=== PATIENT | male | born 1940 | race American Indian/Alaskan Native ===

== ENCOUNTER 2017-05-26 06:44 | Day surgery (SDC) | payer MEDICARE ==
[2017-05-26] MEDS ORDERED: ECOTRIN PO ONE (07:02)
[2017-05-26 07:26] LABS: Basophils % (Auto) 0.4 % (0.0-1.8); Eosinophils % (Auto) 2.2 % (0.0-4.3); Hematocrit 42.3 % (35.5-45.6); Hemoglobin 14.3 gm/dl (11.8-15.2); Mean Corpuscular HGB Conc 34 % (32-34); Mean Corpuscular Hemoglobin 29 pg (28-32); Mean Corpuscular Volume 86 fl (84-94); Platelet Count 161 K/mm3 (140-440); Red Cell Distribution Width 15.2 % (13.2-15.2); White Blood Count 4.1 K/mm3 (4.5-11.0)
[2017-05-26 07:29] VITALS: BP 124/69
[2017-05-26 07:37] LABS: Anion Gap 16 mmol/L; Blood Urea Nitrogen 17 mg/dL (9-20); Carbon Dioxide 27 mmol/L (22-30); Chloride 96.5 mmol/L (98-107); Glucose 97 mg/dL (75-100); Potassium 4.2 mmol/L (3.6-5.0); Sodium 135 mmol/L (137-145)
[2017-05-26 07:40] LABS: INR 1.67 (0.87-1.13)
[2017-05-26] MEDS ORDERED: NACL 0.9% 500 ML 500 ML IV SCH (08:00)
== END 2017-05-26 09:00 | disposition home or self-care (01) ==
LOC: EDBD 06:44 → CATHLABREC 06:44
PROVIDERS: ATTEND Internal Medicine
DX: R07.9 Chest pain, unspecified (principal); Z53.8 Procedure and treatment not carried out for other reasons
CPT/HCPCS: 36415; 80048; 85025; 85610; 85730; 93005; 93010; J7040

== ENCOUNTER 2017-05-29 07:05 | Day surgery (SDC) | payer MEDICARE ==
[2017-05-29] MEDS ORDERED: NACL 0.9% 500 ML 500 ML IV SCH (08:00)
[2017-05-29] MEDS ORDERED: ECOTRIN PO ONE (08:00)
[2017-05-29 08:02] LABS: INR 1.06 (0.87-1.13)
[2017-05-29] MEDS ORDERED: HEPARIN/NS 5000 UNIT/500ML(CATH LAB) 1,000 ML IR ONE (08:20)
[2017-05-29] MEDS ORDERED: HEPARIN 10,000 UNITS/10 ML ONE (08:20)
[2017-05-29] MEDS: VERSED ONE ×2 (08:42→08:50)
[2017-05-29] MEDS: SUBLIMAZE ONE ×2 (08:42→08:50)
[2017-05-29] MEDS: XYLOCAINE 2% INFILTRATI ONE ×2 (08:43→08:54)
--- NOTE | 2017-05-29 12:38 | Cardiac Catherization Report ---
CARDIAC CATHETERIZATION INDICATION FOR PROCEDURE: A 77-year-old gentleman with history of bypass surgery done on 05/17/2002, with left internal mammary to the LAD and SVG to the PDA. Presently, having chest pains at rest with negative PET scan. Because of persistent chest pain and shortness of breath, he is scheduled for cardiac catheterization for definitive diagnosis and treatment. The patient is aware of the procedure, potential complications, and alternatives of therapy available. DESCRIPTION OF PROCEDURE: The patient was brought to the catheterization laboratory in a fasting condition. Right groin area was thoroughly cleansed with Betadine solution and sterile drapes were applied. Local anesthesia was achieved using 2% Xylocaine. Right femoral artery puncture was made using 5F Micropuncture arterial puncture needle. Subsequently, 5-[place]banian sheath was introduced. A 5-[place]ian multipurpose catheter was used to obtain the angiograms of the right coronary artery, left coronary artery, vein graft to the RCA and left ventriculogram done in HERNANDEZ projections. Subsequently, mammary catheter was used to obtain the angiograms of the left internal mammary graft. At the end of the procedure, catheter and sheath were removed. Good hemostasis was achieved with manual pressure. No untoward complications were noted. Following findings were noted. HEMODYNAMICS: 1. Opening aortic pressure 153/65. No gradient across the aortic valve. Right coronary artery dominant vessel shows moderate 60% to 70% lesion in the mid part with occlusion in the distal part prior to the PDA. LV branch and PDA are not visualized on right coronary injection. However, PDA and LV branch are well visualized through the collaterals and LCA injection. 2. Left coronary artery arises normally from left coronary cusp. Left main without significant disease. The LAD is occluded after giving rise to major septal branches. Distal LAD is not visualized on pechanga LCA injection. Ramus branch shows mild disease. Large obtuse marginal branch shows 50% smooth proximal lesion, otherwise mild diffuse irregularities noted. 3. LCA injection as mentioned above excellent collaterals are noted to the distal RCA and PDA. 4. Saphenous vein graft to the PDA is occluded at the origin. 5. Left internal mammary to the LAD is widely patent. Mid and distal LAD without significant disease. 6. Left ventriculogram done in HERNANDEZ projection shows mild diffuse hypokinesis. However, only limited amount of dye is injected. Approximately ejection fraction was felt to be 40% to 45%. Mitral regurgitation could not be evaluated. FINAL IMPRESSION: 1. Mild LV dysfunction; however, would confirm this with echocardiographic findings. 2. Occluded RCA in the distal part with occluded vein graft to the RCA with excellent collaterals on LCA injection to the distal RCA. Left system shows this occluded LAD, which is well protected by widely patent left internal mammary. Distal LAD without significant disease. Ramus branch and circumflex artery showed only mild to moderate disease. Considering the above would continue medical therapy. If needed, consider intervention of the chronic total occlusion of the RCA. At this point, medical therapy appears to be appropriate. Good hemostasis was achieved with pressure bandage. No untoward complications were noted. Findings were explained to the patient. JOB# [id number] YOLANDA/IRA DE LA VEGA
[2017-05-29 13:36] VITALS: BP 142/86
--- NOTE | 2017-05-30 12:54 | Short Stay Summary ---
Short Stay Documentation Date of service: 05/30/17 - History H&P: obtained from office - Allergies and Medications Current Medications: Allergies No Known Allergies Allergy (Verified 05/26/17 07:11) Home Medications Medication Instructions Recorded Confirmed Last Taken Type Aspirin [Aspirin BABY CHEW TAB] 81 mg PO DAILY 05/26/17 05/29/17 05/28/17 History AtorvaSTATin [Lipitor] 40 mg PO DAILY 05/26/17 05/29/17 05/28/17 History Furosemide [Lasix TAB] 40 mg PO DAILY 05/26/17 05/29/17 05/28/17 History Tizanidine HCl [Zanaflex] 4 mg PO TID PRN 05/26/17 05/29/17 05/28/17 History Valsartan/Hydrochlorothiazide 1 tab PO DAILY 05/26/17 05/29/17 05/28/17 History [Valsartan-Hctz 160-12.5 mg Tab] Warfarin [Coumadin] 7.5 mg PO DAILY 05/26/17 05/29/17 05/23/17 History 7.5mg - Brief post op/procedure progress note Date of procedure: 05/29/17 Pre-op diagnosis: CAD; chest pain Post-op diagnosis: same Procedure: C - see report Anesthesia: local Estimated blood loss: none Condition: stable - Disposition Condition at discharge: Good Disposition: [id number] TO HOME OR SELFCARE - Discharge Diagnoses (1) CAD (coronary artery disease) Status: Chronic Qualifiers: Coronary Disease-Associated Artery/Lesion type: C [place] vs. transplanted heart: N Associated angina: A (2) Hx of CABG Status: Chronic (3) Chest pain Status: Resolved Qualifiers: Chest pain type: C Ischemic chest pain type: I Short Stay Discharge Plan Activity: advance as tolerated Diet: low fat, low cholesterol, low salt Wound: open to air, keep clean and dry, per your surgeon's advice Forms: CardCath PCI D/C Instructions
== END 2017-05-29 13:30 | disposition home or self-care (01) ==
LOC: CATHLABREC 07:05
PROVIDERS: ATTEND Internal Medicine
DX: I25.810 Atherosclerosis of coronary artery bypass graft(s) without angina pectoris (principal); I10 Essential (primary) hypertension; Z95.1 Presence of aortocoronary bypass graft; Z95.0 Presence of cardiac pacemaker; Z98.890 Other specified postprocedural states
CPT/HCPCS: 36415; 85610; 93005; 93010; 93459; J1644; J2250; J3010; J7040; Q9967